=== PATIENT | male | born 1975 | race Caucasian/White ===

== ENCOUNTER → 2019-12-23 | Outpatient (CLI) | payer SELFPAY ==
--- NOTE | 2019-12-23 15:55 | US ---
EXAM DESCRIPTION: Venous,Lower Extremity LT: ULTRASOUND. CLINICAL HISTORY: LOCALIZED EDEMA COMPARISON: None Available. TECHNIQUE: Ly-scale and doppler sonographic evaluation of the deep venous system of the left lower extremity. FINDINGS: Doppler evaluation shows normal color flow and normal phasicity and augmentation of the left common femoral vein, left femoral vein, popliteal vein, left greater saphenous vein, junction with the CFV. Also normal color flow and normal phasicity and augmentation of the peroneal, and posterior tibial vein. The left lower extremity deep veins were completely compressible; normal occlusion with transducer pressure. Ly-scale survey showed no echogenic thrombus within these veins. Interstitial edema in the subcutaneous adipose tissue left calf. IMPRESSION: 1. Duplex ultrasound evaluation of the left lower extremity deep venous system showing no evidence of thrombosis. 2. Interstitial edema in the subcutaneous adipose tissue of the left calf. Electronically signed by: Ramiro Cordoba MD 12/23/2019 3:53 PM CDT
== END ==
LOC: US 12:48
PROVIDERS: ATTEND Nurse Practitioner Family
DX: R60.0 Localized edema (principal)